=== PATIENT | female | born 1960 | race Caucasian/White ===

== ENCOUNTER → 2018-03-02 | Outpatient (CLI) | payer BC ==
[~2018-03-02] MED LIST: ACETAMINOPHEN-1 EAC1 PO; CIPRO750 MG PO; FLOMAX0.4 MG PO; ONDANSETRON HCL4 M1 PO; SYNTHROID100 MCG PO; VICODIN,LORT1 TABLET PO
== END | disposition home or self-care (01) ==
LOC: CDC 13:56
DX: Z01.810 Encounter for preprocedural cardiovascular examination (principal); K80.20 Calculus of gallbladder without cholecystitis without obstruction
CPT/HCPCS: 93000

== ENCOUNTER 2018-03-14 05:46 | Day surgery (SDC) | payer BC ==
[~2018-03-14] VITALS: Ht 167.6 cm; Wt 73.9 kg
[~2018-03-14 05:46] MED LIST changes: -SYNTHROID100 MCG PO; +SYNTHROID112 MCG PO; +ZYRTEC10 M2 PO
[2018-03-14 07:15] VITALS: BP 116/57
[2018-03-14] MEDS ORDERED: HYDROCODON-ACE1 EAC7 PO (09:01)
[2018-03-14 10:15] VITALS: BP 132/50
[2018-03-14 11:18] VITALS: BP 122/62
[2018-03-14 13:20] VITALS: BP 123/60
== END 2018-03-14 13:33 | disposition home or self-care (01) ==
LOC: SDC 05:46
PROC: 0FT44ZZ Resection of Gallbladder, Percutaneous Endoscopic Approach (ICD-10-PCS; principal; 2018-03-14)
DX: K80.12 Calculus of gallbladder with acute and chronic cholecystitis without obstruction (principal); E03.9 Hypothyroidism, unspecified; I95.9 Hypotension, unspecified
CPT/HCPCS: 88304; J0690; J1100; J1885; J2250; J2405; J2710; J2765; J3010; J7643; Q0175; S0020